=== PATIENT | female | born 1950 | race Asian ===

== ENCOUNTER 2024-09-15 09:19 | Outpatient (RCR) | payer MEDICARE, MEDICAID, SELFPAY | END 2024-09-17 23:59 | disposition home or self-care (01) | LOC: SCTC 09:19 | PROVIDERS: PCP Family Medicine; Referring Provider Family Medicine; Visit Provider Nurse Practitioner Family | DX: Z08 Encounter for follow-up examination after completed treatment for malignant neoplasm (principal); Z85.038 Personal history of other malignant neoplasm of large intestine; Z86.2 Personal history of diseases of the blood and blood-forming organs and certain disorders involving the immune mechanism | CPT/HCPCS: 99212; G0463 ==

== ENCOUNTER 2025-01-04 08:57 | Emergency (ER) | payer MEDICARE, MEDICAID, SELFPAY ==
--- NOTE | 2025-01-04 09:12 | EDNOTE_ITS ---
ED Abdominal Pain RME/HPI General Chief Complaint: Abdominal Pain Stated complaint: ABDOMINAL PAIN Time seen by provider: 01/04/25 09:12 Arrival date/time: 01/04/25 08:57 RME / HPI RME / HPI narrative: See MDM for Dr. Weiss's physical exam documentation. Related Data Home Medications ?Medication ?Instructions ?Recorded ?Confirmed olanzapine 2.5 mg tablet (Zyprexa) 2.5 mg PO DAILY ##0 03/09/12 12/02/23 docusate sodium 100 mg capsule 1 cap PO BID ##0 08/18/17 docusate sodium 100 mg capsule 100 mg PO BID 12/02/23 12/02/23 promethazine-DM 6.25 mg-15 mg/5 mL ml 12/02/23 oral syrup Previous Rx's ?Medication ?Instructions ?Recorded benzonatate 100 mg capsule 100 mg PO Q8HR PRN cough #3 0 caps 08/18/17 (Tesmazin Lopez) fluticasone propionate 50 50 mcg intranasal QDAY #9.9 grams 08/18/17 mcg/actuation nasal spray,suspension (Flonase Allergy Relief) loratadine-pseudoephedrine ER 10 1 tab PO Q24H #10 tab s 08/18/17 mg-240 mg tablet,extended [id number] (Claritin-D 24 Hour) promethazine-DM 6.25 mg-15 mg/5 mL 5 ml PO Q6H PRN cou gh #180 mL 08/18/17 oral syrup acetaminophen 300 mg-codeine 30 mg 2 tab PO Q8H PRN pa in #20 tabs 01/04/25 tablet famotidine 40 mg tablet 40 mg PO .bedtime #30 tabs 1 03/06/24 omeprazole 40 mg capsule,delayed 40 mg PO QDAY #30 cap s 01/04/25 release ondansetron 4 mg disintegrating 4 mg PO TID PRN nausea and 01/04/25 tablet vomiting 30 days #10 tabs Allergies Allergy/AdvReac Type Severity Reaction Status Date / Time Iodinated Contrast Media AdvReac Severe Swelling Verified 01/04/25 09:48 of Lip/Tongue/Throat Review of Systems Review of Systems Systems Reviewed: All systems reviewed, normal except as documented Past Medical History Past Medical History NEUROLOGIC: Positive Seizures CARDIAC: Positive Hypercholesterolemia GASTROINTESTINAL: Positive Colorectal Cancer GENITOURINARY: Positive Kidney Stones HEMATOLOGIC: Positive Anemia PSYCHO/SOCIAL: Positive Depression and Anxiety OTHER HISTORY: Positive Blood Transfusions, Cancer and Colorectal Cancer Surgical History SURGICAL: Positive Section Social History SMOKING STATUS: Never smoker ED Exam Narrative Physical exam: See MDM for Dr. Weiss's physical exam documentation. Course Quality Measures none Orders Category Date Time Status Bedside COVID-19 Antigen Test NOW Care 01/04/25 09:13 Active Saline [Insert IV] NOW Care 01/04/25 09:[address] chest abdomen pelvis wo Stat Exams 01/04/25 09:[address] head/brain wo con Stat Exams 01/04/25 09:14 Completed US gall bladder Stat Exams 01/04/25 09:15 Completed XR chest 1V portable Stat Exams 01/04/25 09:15 Completed Amylase Stat Lab 01/04/25 09:48 Completed BNP [B-Type Natriuretic Peptide] Stat Lab 01/04/25 09:48 Completed Beta Hydroxybutyrate Stat Lab 01/04/25 09:48 Completed Bilirubin,Direct Stat Lab 01/04/25 09:48 Completed CBC Stat Lab 01/04/25 09:48 Completed CMP [Comprehensive Metabolic Panel] Stat Lab 01/04/25 09:48 Completed CRP [C-Reactive Protein] Stat Lab 01/04/25 09:48 Completed ESR [Sed Rate (ESR)] Stat Lab 01/04/25 09:48 Completed Influenza A & B Rapid Panel Stat Lab 01/04/25 09:50 Completed Lipase Stat Lab 01/04/25 09:48 Completed Magnesium Stat Lab 01/04/25 09:48 Completed Procalcitonin Stat Lab 01/04/25 09:48 Completed TSH [Thyroid Stimulating Hormone] Stat Lab 01/04/25 09:48 Completed Troponin I Stat Lab 01/04/25 09:48 Completed UA, C/S IF [Urinalysis, C/S if Indicated] Stat Lab 01/04/25 09:46 Completed Famotidine Inj [Pepcid Inj] Med 01/04/25 09:13 Discontinued 20 mg IVP X1 ONE Morphine* Inj Med 01/04/25 09:13 Discontinued 2 mg IV X1 ONE Ondansetron Inj [Zofran Inj] Med 01/04/25 09:13 Discontinued 4 mg IVP X1 ONE Pantoprazole Inj [Protonix Inj] Med 01/04/25 09:13 Discontinued 40 mg IVP X1 ONE Sodium Chloride 0.9% 1000 ml [Ns] 1,000 ml Med 01/04/25 09:13 Discontinued IV 999 mls/hr Vital Signs Vital signs: Vital Signs Temperature 98.2 F 01/04/25 10:07 Pulse Rate 79 01/04/25 10:07 Respiratory Rate 18 01/04/25 10:07 Blood Pressure 138/72 H 01/04/25 10:07 Pulse Oximetry (%) 96 01/04/25 10:07 Oxygen Delivery Method Room Air 01/04/25 10:07 Pulse ox is 96% on room air which is adequate. Abdominal Pain MDM MDM Narrative MDM Narrative:: This section includes all my notes and documentations, including HPI, PE, and ED course. Broderick Weiss MD HPI: 74-year-old female here with several days of abdominal pain and chest pain and headache and nausea. No speech or visual impairment. No right-sided weakness or left-sided weakness. No other complaints. ROS: All negative except as documented in HPI. Physical Exam: General:? Alert and oriented.? No acute distress.? Eyes:? Conjunctivae and lids clear.? EOMI.? PERRL. ENT:? No nasal congestion noted. Neck:? Supple.? Heart:? RRR. Lungs:? No respiratory distress.? Good air movement.? No rhonchi, wheezing, rales.? Chest:? No tenderness. Abdomen:? Soft with epigastric tenderness.? Normal bowel sounds.? No distension.? No rebound or guarding.? Back:? No CVA tenderness.? Skin:? Warm and dry.? Neuro:? Alert and oriented X 3.? Cranial Nerves II-XII grossly intact.? No peripheral motor deficits. Musculoskeletal:? All major joints and bones are not tender with no limited ROM. I reviewed EMS notes. I reviewed all diagnostic test results: My interpretation of the chest x-ray is: NAD. My review of the CT head report is: No acute findings. My review of the US gallbladder report is: Cholelithiasis, no cholecystitis. My review of the CT chest/abdomen/pelvis report is: NAD. Blood tests and urine tests unremarkable Covid/Influenza are negative. At this point, diagnoses include: Stomach Ulcer Treatment here included: IVF Famotidine 20 mg IV Protonix 40 mg IV Morphine 2 mg IV Zofran 4 mg IV Significant improvement noted. Recommended outpatient management. Based on my best medical judgment, made decision no further evaluation or treatment indicated at this time. Patient and daughter understands and agrees to the discharge instructions customized and printed, see below. Discharge instructions from Dr. Weiss: ?After extensive evaluation from head to toe, there is no immediately life- threatening condition. Such as stroke or brain tumor or heart attack. --Your symptoms are due to stomach ulcer (see attached handout).? There is no emergency such as appendicitis needing emergent surgery. ?To help heal the ulcer, take Omeprazole 40 mg every morning and Famotidine 40 mg at bedtime for a month. ?Zofran for nausea/vomiting.? Clear liquid diet for 24 hours.? Then slowly advance diet as tolerated. ?Avoid food and beverages that can trigger and worsen ulcers.? See attached handout. --Tylenol with codeine for severe pain. Take 1 pill at a time initially. ?See a private doctor on 01/06/2025 for recheck. To make sure there is no serious intra-abdominal condition, ask for help with more investigation not available here in the ER.? Such as EGD or scoping the stomach, colonoscopy or scoping the colon, and referral to see interior design instructor. Ask to review all test results and official radiology reports, to make sure you receive all necessary follow-ups and monitoring. ?Seek immediate medical care with worsening or with any concerns. Broderick Weiss MD Patient data External records reviewed:: [facility] previous records Clinical information provided by:: patient Social determinants that could affect healthcare access:: none Patient has the following chronic illnesses:: colon cancer s/p sigmoid colectomy 2012, cholelithiasis How is presenting disease/condition affected by chronic disease/condition?: exacerbated by Evaluation data The following diagnostics were reviewed and interpreted by me:: lab results and radiology exam(s) Lab and/or radiology exams considered but not ordered:: None Interpretation Summary: I reviewed all diagnostic test results: My interpretation of the chest x-ray is: NAD. My review of the CT head report is: No acute findings. My review of the US gallbladder report is: Cholelithiasis, no cholecystitis. My review of the CT chest/abdomen/pelvis report is: NAD. Blood tests and urine tests unremarkable Covid/Influenza are negative. Medications / Prescriptions Medications or Prescriptions considered but not ordered:: None Medication administrations:: Medication Administration History Discontinued Medications Famotidine (Famotidine Inj 10 Mg/Ml Vial 2 Ml) 20 mg IVP X1 ONE Stop: 01/04/25 09:14 Last Admin: 01/04/25 09:51 Dose: 20 mg Documented By: BY Sodium Chloride (Ns) 1,000 mls @ 999 mls/hr IV .Q1H1M ONE Stop: 01/04/25 10:13 Last Infusion: 01/04/25 10:50 Dose: Infused Documented By: Admin: 01/04/25 09:50 Dose: 999 mls/hr Documented By: BY Morphine Sulfate (Morphine Sulf Inj 4 Mg/Ml Vial) 2 mg IV X1 ONE Stop: 01/04/25 09:14 Last Admin: 01/04/25 09:51 Dose: 2 mg Documented By: BY Ondansetron HCl (Ondansetron Inj 2 Mg/Ml Inj 2 Ml) 4 mg IVP X1 ONE; Protocol Stop: 01/04/25 09:14 Last Admin: 01/04/25 09:52 Dose: 4 mg Documented By: BY Pantoprazole Sodium (Pantoprazole Inj 40 Mg Vial) 40 mg IVP X1 ONE Stop: 01/04/25 09:14 Last Admin: 01/04/25 09:52 Dose: 40 mg Documented By: BY Treatment here included: IVF Famotidine 20 mg IV Protonix 40 mg IV Morphine 2 mg IV Zofran 4 mg IV Consultations Consultation(s) initiated? (list below): No Diagnosis Differential diagnosis abdominal pain: abdominal pain, gastroenteritis and other (PUD) Most likely diagnosis given after review of the tests above:: Stomach ulcer Admission Indicated Admission indicated?: not indicated Explain why admission is indicated or not indicated:: With significant improvement and no condition needing emergent intervention, there was no indication for admission. Admission Request Was there a request for admission?: No Disposition Plan Disposition Plan: Discharge Discharge Attestation Discharge Attestation: The patient and all family members were given an opportunity to ask questions and understood the discharge instructions. Discharge instructions specifically effects, indications for sooner follow up or return to the emergency department, and the expected course of current diagnosis. Patient condition: Stable Discharge Plan Plan Patient Disposition: HOME (Self Care) Prescriptions/Referrals Prescriptions/Med Rec: New famotidine 40 mg tablet 40 mg PO .bedtime Qty: 30 0RF acetaminophen-codeine 300-30 mg tablet 2 tab PO Q8H MDD 6 PRN (Reason: pain) Qty: 20 0RF omeprazole 40 mg capsule,delayed release(DR/EC) 40 mg PO QDAY Qty: 30 0RF ondansetron 4 mg tablet,disintegrating 4 mg PO TID PRN (Reason: nausea and vomiting) 30 Days Qty: 10 0RF No Action promethazine-DM 6.25-15 mg/5 mL syrup 5 ml PO Q6H PRN (Reason: cough) Qty: 180 0RF Rx Instructions: 5-10ml PO Q6-8 hours prn cough loratadine-pseudoephedrine [Claritin-D 24 Hour] 10-240 mg tablet extended release 24 hr 1 tab PO Q24H Qty: 10 0RF fluticasone propionate [Flonase Allergy Relief] 50 mcg/actuation spray,suspension 50 mcg INTRANASAL QDAY Qty: 9.9 0RF benzonatate [Tessalon Perles] 100 mg capsule 100 mg PO Q8HR PRN (Reason: cough) Qty: 30 0RF Rx Instructions: 1-2 cap(s) PO Q8 hours prn cough olanzapine [Zyprexa] 2.5 MG tablet 2.5 mg PO DAILY Qty: 0 docusate sodium 100 MG capsule 1 cap PO BID Qty: 0 promethazine-DM 6.25-15 mg/5 mL syrup Patient Comments: take 10 MILLILITER by mouth three times a day if needed for cough docusate sodium 100 mg capsule 100 mg PO BID Patient Comments: take 1 capsule by mouth twice a day if needed Referrals: Marlo Hearn MD [Primary Care Provider, Family Practice] - In 1 week Problem List Clinical Impression: Stomach ulcer Patient/Caregiver Discharge Instructions Discharge Activity: activity as tolerated Education Materials: ED PEPTIC ULCER vs GASTRITIS Additional Instructions: Discharge instructions from Dr. Weiss: ?After extensive evaluation from head to toe, there is no immediately life- threatening condition. Such as stroke or brain tumor or heart attack. --Your symptoms are due to stomach ulcer (see attached handout).? There is no emergency such as appendicitis needing emergent surgery. ?To help heal the ulcer, take Omeprazole 40 mg every morning and Famotidine 40 mg at bedtime for a month. ?Zofran for nausea/vomiting.? Clear liquid diet for 24 hours.? Then slowly advance diet as tolerated. ?Avoid food and beverages that can trigger and worsen ulcers.? See attached handout. --Tylenol with codeine for severe pain. Take 1 pill at a time initially. ?See a private doctor on 01/06/2025 for recheck. To make sure there is no serious intra-abdominal condition, ask for help with more investigation not available here in the ER.? Such as EGD or scoping the stomach, colonoscopy or scoping the colon, and referral to see interior design instructor. Ask to review all test results and official radiology reports, to make sure you receive all necessary follow-ups and monitoring. ?Seek immediate medical care with worsening or with any concerns. Print Language: Pashto Stand Alone Forms: Michelle Award Info., Patient Portal Info Letter
[2025-01-04 09:14] VITALS: PULSE 88; RESP 18; O2SAT 98
--- NOTE | 2025-01-04 09:14 | XR_ITS ---
Examination: CT brain head without contrast. 2-D sagittal coronal reconstructions Date and time of exam: January 04, 2025, 0928 hours, comparison PET/CT scan May 09, 2018, CT brain June 24, 2015 CTDI: vol (mGy): 45.2 DLP: (mGycm): 832 Technique: Multiple CT axial sections of the brain have been obtained, 5 mm slice thickness. Contrast has not been administered. 2-D sagittal, coronal reconstructions have been obtained Low dose protocols were performed. One or more of the following dose reduction techniques were used; automated exposure control, adjustment of the mA and/or KV according to patient size, use of iterative reconstruction technique. Findings: No significant ventricular enlargement. Again noted cerebral calcifications, the largest in the left frontal lobe 7 mm Intra-axial or extra-axial hemorrhage density is not seen. No mass effect or midline shift Basal cisterns are not remarkable. Fourth ventricle is midline. Cranial vault intact. Impression: Negative for acute hemorrhage, mass effect or midline shift
--- NOTE | 2025-01-04 09:14 | XR_ITS ---
Examination: CT chest, without intravenous contrast. CT abdomen, without intravenous contrast. CT pelvis, without intravenous contrast. 2-D sagittal and coronal reconstructions. 3-D reconstructions. Date and time of exam: January 04, 2025, 0930 hours, comparison December 02, 2023 INDICATION: Generalized chest and abdominal pain today CTDI vol (mgy) 6.74 DLP (MGycm) 138 Technique: Multiple CT images, 3.0 mm slice thickness, obtained chest, abdomen, pelvis, with the high-resolution 64 slice scanner.. Sagittal and coronal 2-D reconstructions are obtained. 3-D reconstructions Low dose protocols were performed. One or more of the following dose reduction techniques were used; automated exposure control, adjustment of the mA and/or KV according to patient size, use of iterative reconstruction technique. Findings: No thoracic aortic aneurysmal dilatation Pulmonary artery segments are not enlarged Moderate calcification left anterior descending coronary artery No pneumonia or pulmonary edema or pleural disease Diffuse significant fatty infiltration throughout the liver no pancreatic or adrenal mass Cholelithiasis, negative for cholecystitis 2 mm nonobstructing left renal calculus Aorta normal size No bowel obstruction No pericecal inflammatory change No pelvic mass Urinary bladder intact Prominent osteopenia IMPRESSION: Moderate calcification left anterior descending coronary artery No mediastinal lymphadenopathy No pneumonia or pulmonary edema or pleural disease Significant fatty infiltration throughout the liver Cholelithiasis, negative for cholecystitis 2 mm nonobstructing left renal calculus, no hydronephrosis or ureteral calculi No CT findings of appendicitis bowel obstruction or diverticulitis
--- NOTE | 2025-01-04 09:15 | XR_ITS ---
Examination: Abdomen sonogram, Limited Date and time of exam: January 04, 2025, 11:57 a.m. INDICATIONS: Right upper abdominal pain epigastric pain beginning 1 week ago Technique: Real-time womack scale transabdominal sonographic images of the upper abdomen obtained. Findings: Multiple gallstones Normal gallbladder wall 0.3 cm Common bile duct 0.4 cm Pancreatic head 2.0 cm Liver 13.6 cm fatty infiltration Normal hepatopetal portal venous flow Patent IVC IMPRESSION: Cholelithiasis, negative for cholecystitis
--- NOTE | 2025-01-04 09:15 | XR_ITS ---
EXAMINATION: AP chest single view TECHNIQUE: AP portable sitting single view Date and time: December, 10:16 a.m. INDICATIONS: Shortness of breath today. FINDINGS: Normal heart size. Lungs are clear. Significant osteopenia IMPRESSION: No active disease
[2025-01-04 09:18] VITALS: BMI 25.9
[2025-01-04] MEDS: SODIUM CHLORIDE 0.9% 1000 ML 1,000 ML 999 ML IV (09:50)
[2025-01-04] MEDS: MORPHINE SULF INJ 4 MG/ML VIAL 2 MG IV (09:51)
[2025-01-04] MEDS: FAMOTIDINE INJ 10 MG/ML VIAL 2 ML 20 MG IVP (09:51)
[2025-01-04] MEDS: ONDANSETRON INJ 2 MG/ML INJ 2 ML 4 MG IVP (09:52)
[2025-01-04 09:55] LABS: Beta Hydroxybutyrate 0.3 mmol/L (<0.6)
[2025-01-04 09:56] LABS: Collection Type, Urine Clean Catch; RBC,Urine 0 /hpf (0-3)
[2025-01-04 10:07] VITALS: BP 138/72; PULSE 79; RESP 18; TEMP 36.8; O2SAT 96
[2025-01-04 10:09] LABS: Basophils # (Auto) 0.0 Thou/mm3 (0.0-0.2); Basophils % (Auto) 1 % (0-2.5); Eosinophils # (Auto) 0.0 Thou/mm3 (0.0-0.5); Eosinophils % (Auto) 0 % (0-10); Hematocrit 35.3 % (36.0-46.0); Hemoglobin 11.3 g/dL (12.0-16.0); Immature Granulocytes Auto 0.01 Thou/mm3 (0.00-0.00); Lymphocytes # (Auto) 2.0 Thou/mm3 (1.0-4.8); Lymphocytes % (Auto) 37 % (10-50); Mean Corpuscular HGB Conc 32.0 g/dl (31.0-37.0); Mean Corpuscular Hemoglobin 24.0 pg (25.0-35.0); Mean Corpuscular Volume 75 fL (80-100); Monocytes # (Auto) 0.4 Thou/mm3 (0.0-0.8); Monocytes % (Auto) 7 % (0-12); Neutrophils # (Auto) 3.0 Thou/mm3 (1.8-7.7); Neutrophils % (Auto) 56 % (37-80); Nucleated Red Blood Cell # 0.00 Thou/mm3 (0.00-0.00); Nucleated Red Blood Cell % 0 /100 WBC (0); Platelet Count 210 Thou/mm3 (140-440); RDW Standard Deviation 38.3 fL (36.4-46.3); Red Blood Count 4.71 Miln/mm3 (4.00-5.20); White Blood Count 5.5 Thou/mm3 (3.6-11.0)
[2025-01-04 10:15] LABS: B-Type Natriuretic Peptide 32 pg/mL (0-100)
--- NOTE | 2025-01-04 10:23 | PC.NURSE ---
Per daughter, Mery, at bedside states patient has had black stools x 2 days, will notify provider.
[2025-01-04 10:37] LABS: Bacteria,Urine Rare; Bilirubin,Urine Negative (Negative); Blood,Urine Negative (Negative); Clarity,Urine Clear (Clear/Hazy); Culture Indicated,Urine Not Indicated; Glucose, Urine Negative (Negative); Ketones,Urine Trace (Negative); Leukocyte Esterase,Urine Negative (Negative); Nitrite,Urine Negative (Negative); PH,Urine 7.5 (5.0-7.0); Protein,Urine Negative (Neg - Trace); Specific Gravity,Urine 1.006 (1.001-1.035); Squamous Epithelial Cell,Urine 1 /hpf (0-5); Urobilinogen,Urine Negative mg/dL (0.0-1.0); WBC,Urine < 1 /hpf (0-5)
[2025-01-04 10:40] LABS: Influenza A Ag Negative; Influenza B Ag Negative
[2025-01-04 10:40] LABS: Alanine Aminotransferase 62 U/L (10-49); Albumin, Serum 4.6 gm/dL (3.4-4.8); Albumin/Globulin Ratio 1.8 (1.2-2.2); Alkaline Phosphatase 71 U/L (46-116); Amylase 77 U/L (30-118); Anion Gap 13 (7-16); Aspartate Amino Transferase 66 U/L (0-34); BUN/Creatinine Ratio 11 Ratio (12-20); Bilirubin,Direct 0.4 mg/dL (0.0-0.3); Bilirubin,Total 1.2 mg/dL (0.3-1.2); Blood Urea Nitrogen 10 mg/dL (9-23); C-Reactive Protein < 0.5 mg/dL (0.0-0.9); Calcium 9.8 mg/dL (8.3-10.6); Calcium (Corrected) 9.8 mg/dL (8.5-10.1); Carbon Dioxide 22.9 mMol/L (20.0-31.0); Chloride 107 mMol/L (98-107); Creatinine (Component) 0.9 mg/dL (0.6-1.3); Estimated Creatinine Clearance 43.8 mL/min (>60); Globulin 2.6 gm/dL (2.3-3.5); Glucose 111 mg/dL (74-106); Lipase 31 U/L (12-53); Magnesium 2.0 mg/dL (1.6-2.6); Osmolality,Calculated 284 (275-295); Potassium 3.8 mMol/L (3.4-5.1); Procalcitonin 0.10 ng/ml (0.0-0.49); Sodium 143 mMol/L (136-145); Thyroid Stimulating Hormone 1.30 uIU/mL (0.55-4.78); Total Protein 7.2 gm/dL (5.7-8.2); Troponin I < 0.002 ng/mL (0.0-0.045); eGFR > 60 See Note
[2025-01-04 10:49] LABS: Color,Urine Lt-Yellow (Lt Yel-Yel)
[2025-01-04 11:03] LABS: Sed Rate (ESR) 19 mm/hr (0-30)
[2025-01-04 11:48] VITALS: BP 127/79; PULSE 80; RESP 18; TEMP 36.6; O2SAT 98
[2025-01-04 13:20] VITALS: BP 144/64; PULSE 67; RESP 16; TEMP 36.8; O2SAT 98
== END 2025-01-04 13:20 | disposition home or self-care (01) ==
PROVIDERS: Emergency Provider Emergency Medicine; PCP Family Medicine
DX: K25.9 Gastric ulcer, unspecified as acute or chronic, without hemorrhage or perforation (principal); K80.20 Calculus of gallbladder without cholecystitis without obstruction
CPT/HCPCS: 36415; 70450; 71045; 71250; 74176; 76705; 80053; 81001; 82010; 82150; 82248; 83690; 83735; 83880; 84145; 84443; 84484; 85025; 85652; 86140; 87502; 87635; 96361; 96374; 96375; 99284; J2270; J2405; J2470; J3490; J7030